=== PATIENT | male | born 1985 | race Caucasian/White ===

== ENCOUNTER 2022-06-28 17:24 | Emergency (ER) | payer OTHER, SELFPAY ==
[2022-06-28 17:25] VITALS: BP 127/76; PULSE 91; RESP 16; TEMP 36.2; O2SAT 100; BMI 25.8
--- NOTE | 2022-06-28 17:58 | RAD_ITS ---
STUDY: X-RAY - RIGHT FOOT CLINICAL: Male, 36 years old. injury TECHNIQUE: 3 view(s) of the foot. COMPARISON: None. FINDINGS: Acute comminuted fracture the body the calcaneus with loss of Boehler''s angle. Normal visualized subtalar, talonavicular, calcaneocuboid, tarsal and tarsometatarsal articulations. Normal metatarsi. Normal metatarsophalangeal joint of the great toe. Normal tibial and fibular sesamoid bones. Normal interphalangeal joint of the great toe. Normal phalanges of the great toe. Normal second through fifth metatarsophalangeal joints. Normal interphalangeal joints and phalanges of the lesser toes. The soft tissue structures are unremarkable. RAD/Foot min 3 Views IMPRESSION: Acute comminuted fracture the body the calcaneus with loss of Boehler''s angle. Electronically Signed: Alonso Haro MD at 19:46 EDT ,
--- NOTE | 2022-06-28 17:59 | EX.ED.GENINJ ---
HPI History of Present Illness Chief Complaint: Fall Informant: patient Onset/Context/Timing Onset: Today Mechanism/Context: Fall (12 foot fall off a roof) Location of pain/injuries: Right ankle and Right foot Current Severity: Moderate Maximum Severity: Moderate Narrative Narrative: Patient presents approximately hour and a half after falling 12 feet off a roof. He states he landed on both feet with his knees bent. He did fall forward with a mild impact to his head. There was no loss of consciousness. He has no headache or neck pain. He states he landed in mud. He is complaining of pain to the right ankle and foot. He denies hip or back pain at this time. PFSH PFSH Medical History no medical history no medical history Home Medications oxycodone-acetaminophen 5 mg-325 mg tablet (Percocet) 1 tab PO Q6H PRN pain 5 days #20 tabs 06/28/22 [Rx Last Taken Unknown] Allergy/AdvReac Type Severity Reaction Status Date / Time No Known Allergies Allergy Verified 06/28/22 17:25 Surgical History no surgical history Social History Smoking Status: Current every day smoker tobacco type: cigarettes ROS ROS ED Constitutional Constitutional ED: Denies chills or fever(s) Eyes Eyes: Denies change in vision or discharge from eye(s) ENT ENT ED: Denies discharge from eye(s), rhinorrhea or sore throat Cardiovascular Cardiovascular: Denies chest pain or palpitations Respiratory/Chest Respiratory/Chest: Denies cough or dyspnea Gastrointestinal Gastrointestinal: Denies abdominal pain, diarrhea, nausea or vomiting Genitourinary Genitourinary ED: Denies dysuria Musculoskeletal Musculoskeletal: Reports extremity pain; Denies back pain Integumentary Denies Abrasions or rash Neurologic Neurologic: Denies headache(s) or weakness Psychiatric Psychiatric: Denies anxiety or depression Allergic/Immunologic Allergic/Immunologic ED: Denies lip swelling or urticaria EXAM Physical Exam Const Vital Signs: 06/28/22 17:25 06/28/22 17:36 Temperature 97.2 F L Temperature Source Temporal Pulse Rate 91 Respiratory Rate 16 Respiratory Effort Normal Non-Labored Respiratory Depth Normal Respiratory Pattern Normal Blood Pressure 127/76 H Blood Pressure Mean 93 Pulse Ox 100 Oxygen Delivery Method Room Air Positive well nourished and well developed General Appearance ED: well developed HEENT Reports normocephalic and head/scalp atraumatic Eyes PERRL and EOMs intact bilaterally Neck supple Chest Wall inspection of chest normal and palpation of chest normal Resp normal respiratory effort and clear to auscultation bilaterally Cardio regular rate and regular rhythm GI normal to inspection, nondistended, normoactive bowel sounds Palpation: soft Back/Spine no CVA tenderness Extremity Extremity Narrative: Edema and tenderness noted to the right ankle and calcaneus. Patient able to wiggle toes. Has good sensation distally. No tenderness at the knee or hip. Neuro oriented x3 and no sensory deficits noted Sensorium / Orientation: alert Psych mental status grossly normal Skin no rashes or lesions noted PROC Procedures Lower Extremity Splints Lower Extremity Splint: Marisa and Rafael Salazar Splint Fabrication: Fabricated Location: Right MDM MDM MDM Narrative Medical decision making narrative: Patient given morphine and Zofran for pain. X-rays of the right ankle and foot obtained. Radiography Diagnostic Testing: Clinical Impression(s) from Imaging Studies Foot X-Ray 06/28/22 17:58 IMPRESSION: Acute comminuted fracture the body the calcaneus with loss of Boehler''s angle. Electronically Signed: Alonso Haro MD at 19:46 EDT Reading Location ID and State: [employer] / [employer] , Service support , Ankle X-Ray 06/28/22 18:10 IMPRESSION: Acute comminuted calcaneal fracture. Electronically Signed: Alonso Haro MD at 19:45 EDT Reading Location ID and State: [employer] / [employer] , Service support , Abdomen/Pelvis CT 06/28/22 18:21 IMPRESSION: 1. No acute solid organ or bowel injury. 2. 2 mm nonobstructing left renal stone. Electronically Signed: Alonso Haro MD at 20:02 EDT Reading Location ID and State: [employer] / [employer] , Service support , Lower Extremity CT 06/28/22 18:21 IMPRESSION: 1. Acute comminuted the fracture the body the calcaneus with a depressed fracture through the posterior subtalar joint and loss of Boehler''s angle. 2. Subtle nondisplaced fracture of the tibial plafond. Electronically Signed: Alonso Haro MD at 19:58 EDT , Treatment and Re-Evaluation Narrative: Right foot and ankle x-rays per my interpretation reveal a calcaneal fracture. Patient sent for CT scan of the right lower extremity as well as CT scan of the abdomen and pelvis to evaluate the lumbar spine and hips. Radiology interpretation is reviewed for all studies. There is an acute comminuted fracture of the body the calcaneus with a depressed fracture through the posterior subtalar joint and loss of Boehler's angle. There is a subtle nondisplaced fracture of the tibial plafond. Patient is discussed with foot and ankle, Dr. Weston. She reviewed the patient's imaging. Patient will be placed in a splint and will follow-up in the office in 1 week. Discharge Plan Triage Chief Complaint: Fall ED Provider: Kenia Golden Dx/Rx/DC Orders Clinical Impression: Calcaneus fracture, Fall Instructions: ED Fracture, Foot Prescriptions: New oxycodone-acetaminophen [Percocet] 5-325 mg tablet 1 tab PO Q6H PRN (Reason: pain) 5 Days Qty: 20 0RF Primary Care Provider: Ricardo Oconnor Referrals: Shyanne Weston DPM [Med Staff - Active Staff] - 1 Week Ricardo Oconnor DO [Primary Care Provider] - Disposition Disposition: Home, Self Care
[2022-06-28] MEDS: Ondansetron 4 MG/2 ML Vial IV ×2 (18:09→20:25)
[2022-06-28] MEDS: Morphine 4 MG/ML Syringe IV ×2 (18:10→20:25)
--- NOTE | 2022-06-28 18:10 | RAD_ITS ---
STUDY: X-RAY - RIGHT ANKLE REASON FOR EXAM: Male, 36 years old. injury TECHNIQUE: The view(s) of the ankle. COMPARISON: None. FINDINGS: Normal visualized distal tibia and fibula. Normal medial and lateral malleoli. Normal tibiotalar articulation and ankle mortise. Acute comminuted fracture of the calcaneus with loss of Boehler''s angle. The visualized subtalar, talonavicular, calcaneocuboid and tarsal articulations are normal. Lateral soft tissue swelling consistent ligaments injury. RAD/Ankle min 3 Views IMPRESSION: Acute comminuted calcaneal fracture. Electronically Signed: Alonso Haro MD at 19:45 EDT ,
--- NOTE | 2022-06-28 18:21 | CT_ITS ---
STUDY: CT RIGHT FOOT REASON FOR EXAM: Male, 36 years old. right calcaneal fx RADIATION DOSAGE (If Supplied By Facility): CTDIvol = ( 15.35 ) mGy, DLP = ( 331.96 ) mGycm TECHNIQUE: Thin section transaxial imaging of the foot was obtained, with sagittal and coronal reconstructed images. Individualized dose optimization techniques were used for this CT. COMPARISON: X-ray earlier today FINDINGS: Acute comminuted fracture the body the calcaneus with a depressed fracture the anterior subtalar joint and loss of Boehler''s angle. There is a thin coronally oriented radiolucency through the articular surface of the tibial plafond worrisome for subtle nondisplaced fracture.. Normal visualized tibiotalar, subtalar, talonavicular, calcaneocuboid, tarsal and tarsometatarsal articulations. Normal metatarsi. Normal metatarsophalangeal joint of the great toe. Normal tibial and fibular sesamoid bones. Normal interphalangeal joint of the great toe. Normal phalanges of the great toe. Normal second through fifth metatarsophalangeal joints. Normal interphalangeal joints and phalanges of the lesser toes. The soft tissue structures are unremarkable. CT/Extremity Lower without Contra IMPRESSION: 1. Acute comminuted the fracture the body the calcaneus with a depressed fracture through the posterior subtalar joint and loss of Boehler''s angle. 2. Subtle nondisplaced fracture of the tibial plafond. Electronically Signed: Alonso Haro MD at 19:58 EDT ,
--- NOTE | 2022-06-28 18:21 | CT_ITS ---
STUDY: CT ABDOMEN AND PELVIS WITHOUT CONTRAST REASON FOR EXAM: Male, 36 years old. trauma -- please scan through hips RADIATION DOSAGE (If Supplied By Facility): CTDIvol = ( 6.18 ) mGy, DLP = ( 313.50 ) mGycm TECHNIQUE: Transaxial images were obtained from the dome of the diaphragm to the symphysis pubis without oral contrast, and without intravenous contrast. Sagittal and coronal images were reconstructed. Individualized dose optimization techniques were used for this CT. COMPARISON: None. FINDINGS: The visualized lung bases are unremarkable. The visualized portions of the heart are within normal limits. Normal liver. Normal gallbladder and extrahepatic biliary system. Normal spleen. Normal pancreas. Normal bilateral adrenal glands. Normal right kidney. 2 mm nonobstructing stone in the midsection left kidney. No hydronephrosis, ureteral stone, or ureteral dilatation. Normal visualized stomach. Normal small intestine. Normal colon. The appendix is visualized and appears normal. Normal abdominal aorta. Normal inferior vena cava. Normal retroperitoneum. Normal urinary bladder. Normal abdominal wall. Normal osseous structures. CT/Abdomen/Pelvis without Cont IMPRESSION: 1. No acute solid organ or bowel injury. 2. 2 mm nonobstructing left renal stone. Electronically Signed: Alonso Haro MD at 20:02 EDT ,
[2022-06-28 20:57] VITALS: BP 124/73; PULSE 56; RESP 17; O2SAT 97
== END 2022-06-28 21:03 | disposition home or self-care (01) ==
PROVIDERS: Emergency Provider Emergency Medicine; PCP Family Medicine; Visit Provider Emergency Medicine
DX: S92.011A Displaced fracture of body of right calcaneus, initial encounter for closed fracture (principal); S82.874A Nondisplaced pilon fracture of right tibia, initial encounter for closed fracture; W13.2XXA Fall from, out of or through roof, initial encounter; F17.210 Nicotine dependence, cigarettes, uncomplicated
CPT/HCPCS: 29515; 73610; 73630; 73700; 74176; 96374; 96375; 96376; 99284; A4216; J2405

== ENCOUNTER 2025-06-19 17:03 | Emergency (ER) | payer OTHER, SELFPAY ==
[2025-06-19 17:03] VITALS: BP 128/83; PULSE 64; RESP 16; TEMP 36.4; O2SAT 99
--- NOTE | 2025-06-19 17:47 | EX.ED.GUMALE ---
HPI History of Present Illness Chief Complaint: Flank Pain Narrative Narrative: Chief complaint and HPI: Left flank pain. 39-year-old Faith male with no significant past medical history presents for evaluation of left flank pain. Patient states since approximately 2 PM he has been having intermittent left flank pain. States it currently has resolved. Develops nausea when pain is severe. Denies any history of kidney stones. Denies any fever, chills, shortness of breath, chest pain, diarrhea, emesis, constipation, dysuria, urinary frequency, penile or testicular pain. Review of systems: See HPI Medications: As listed on the chart Allergies: As listed on the chart PFSH: Per chart Vital signs: As listed on the chart. Reviewed. Physical exam: Gen: A&O x3, NAD Head: Normocephalic, atraumatic Eyes: No sclera icterus, conjunctiva clear ENT: Moist mucous membranes Neck: Trachea midline, No JVD CV: RRR, no murmurs, no peripheral edema Resp: Lungs CTA BL, no w/r/c GI: Abd soft, non-distended, non-tender, no r/r/g : No CVA tenderness. Circumcised penis. No penile tenderness or discharge. No penile or testicular swelling. Normal lie and position of the testicles. No testicular tenderness, masses, or skin changes. Cremasteric reflexes intact and equal bilaterally. No rashes. No palpable hernias. Musc: Full ROM, no deformity Skin: Warm, dry Neuro: Alert, oriented, grossly intact, sensation intact Psych: Cooperative, appropriate mood and affect PFSH PFSH Medical History no medical history Home Medications ?Medication ?Instructions ?Recorded ?Last Taken ?Type NK 06/19/25 Unknown History Allergy/AdvReac Type Severity Reaction Status Date / Time No Known Allergies Allergy Verified 06/19/25 17:05 Social History Smoking Status: Current every day smoker tobacco type: cigarettes EXAM Physical Exam Const Vital Signs: 06/19/25 17:03 06/19/25 19:05 06/19/25 20:00 Temperature 97.5 F L 98.1 F 98.1 F Temperature Source Oral Oral Oral Pulse Rate 64 57 L 58 L Respiratory Rate 16 18 16 Blood Pressure 128/83 H 112/66 115/64 Blood Pressure Mean 98 81 81 Pulse Ox 99 100 98 Oxygen Delivery Method Room Air Room Air Room Air MDM MDM MDM Narrative Medical decision making narrative: 39-year-old Faith male with no significant past medical history presents for evaluation of left flank pain. Patient states since approximately 2 PM he has been having intermittent left flank pain. States it currently has resolved. Associated symptom is periodic nausea. Differential diagnosis includes but is not limited to urolithiasis, UTI, myofascial spasm. NS bolus, Zofran, Toradol ordered as one patient and I discussed preventing future episodes of pain. Basic labs ordered with urine and CT abdomen pelvis. CBC without leukocytosis of 12.8. No anemia. BMP unremarkable without SILVESTRE. UA negative for UTI but positive for blood. CT abdomen pelvis shows a small 1 to 2 mm stone at the posterior left aspect of the urinary bladder, at or just past the left UVJ. Very mild left hydroureteronephrosis and perinephritic edema related to recent stone passage. He has one additional tiny nonobstructive left renal stone. Patient's symptoms were likely secondary to past urolithiasis. Patient was updated of all the results and confirmed understanding. I will place him on Flomax to help with the rest of the passage of the stone. Follow-up with urology. Small amount of narcotics and Zofran as needed. He confirmed understanding of the plan. Patient stable to discharge home. Return precautions explained. Impression: 1. Left flank pain 2. Passed urolithiasis Lab Data Labs: Laboratory Results - last 24 hr 06/19/25 06/19/25 17:19 19:14 WBC 12.8 H RBC 5.44 Hgb 16.3 Hct 45.5 MCV 83.6 MCH 30.0 MCHC 35.8 RDW Std Deviation 37.1 RDW Coeff of [place] 12.3 Plt Count 215 MPV 10.7 Immature Gran % (Auto) 0.400 Neut % (Auto) 77.9 H Lymph % (Auto) 13.7 L [place] % (Auto) 5.6 Eos % (Auto) 1.9 Baso % (Auto) 0.5 Absolute Neuts (auto) 10.0 H Absolute Lymphs (auto) 1.76 Nucleated RBC % 0 Sodium 137 Potassium 4.0 Chloride 102 Carbon Dioxide 23.0 Anion Gap 12 BUN 21 H Creatinine 1.07 Est GFR (MDRD) Non-Af 91 BUN/Creatinine Ratio 19.3 Glucose 119 H Calcium 10.7 Urine Color Straw Urine Clarity Clear Urine pH 6.0 Ur Specific [place] 1.020 Urine Protein 15 H Urine Glucose (UA) Normal Urine Ketones Negative Urine Occult Blood 10 H Urine Nitrite Negative Urine Bilirubin Negative Urine Urobilinogen Normal Ur Leukocyte Esterase Negative Urine RBC 0-5 SEEN Urine WBC 0-5 SEEN Ur Squamous Epith Cells 0-5 SEEN Urine Bacteria 0 SEEN Urine Mucus 0 SEEN Radiography Diagnostic Testing: Clinical Impression(s) from Imaging Studies Abdomen/Pelvis CT 06/19/25 18:10 IMPRESSION: Small 1-2 mm stone at the posterior left aspect of the urinary bladder, at or just past the left ureterovesicular junction. Very mild left hydroureteronephrosis and perinephric edema related to recent stone passage. One additional tiny nonobstructive left renal stone. Reading Location: [facility] Discharge Plan Triage Chief Complaint: Flank Pain ED Provider: Esvin Cosme Dx/Rx/DC Orders Prescriptions: No Action NK Primary Care Provider: Ricardo Oconnor Referrals: Ricardo Oconnor, [Primary Care Provider] - Print Language: [place]
[2025-06-19] MEDS: 0.9% Normal Saline (1000mL) 1,000 ML 999 ML IV (18:01)
[2025-06-19 18:03] LABS: Hematocrit 45.5 % (40-54); Hemoglobin 16.3 g/dL (13.0-16.5); Immature Granulocytes Count 0.050 X10^3/uL (0.0-0.0); Mean Corp Hgb Conc 35.8 g/dL (32-36); Mean Corpuscular Volume 83.6 fL (80-94); Mean Platelet Vol. 10.7 fl (6.2-12.0); NRBC Flagged by Analyzer 0 % (0-5); Platelet Count 215 K/mm3 (150-450); RBC Distribution Width CV 12.3 % (11.6-14.6); RBC Distribution Width SD 37.1 fl (35.1-43.9); Red Blood Count 5.44 M/mm3 (4.6-6.2); White Blood Count 12.8 K/mm3 (4.4-11.0)
--- NOTE | 2025-06-19 18:10 | CT_ITS ---
PROCEDURE: CT ABDOMEN/PELVIS WITHOUT CONTRAST 06/19/2025 REASON FOR EXAM: PAIN TECHNIQUE: CT ABDOMEN/PELVIS WITHOUT CONT Noncontrast technique limits evaluation of the abdominal and pelvic viscera. Coronal and Sagittal reconstruction series were provided. One or more dose reduction techniques were used (e.g., Automated exposure control, adjustment of the mA and/or kV according to patient size, use of iterative reconstruction technique). RADIATION DOSE SUMMARY: CTDlvol: 6.81 mGy DLP: 376.03 mGycm COMPARISON: Abdominal CT 06/28/2022. FINDINGS: Lung bases: Bibasilar dependent atelectasis. Liver: Unremarkable. Gallbladder: Unremarkable. No biliary ductal dilatation. Spleen: Unremarkable. Pancreas: Unremarkable. Adrenals: Unremarkable. Kidneys/Bladder: Small 1-2 mm stone at the posterior left aspect of the bladder, at or just past the left ureterovesicular junction. There is mild left hydroureteronephrosis and left perinephric edema. One additional tiny nonobstructive left lower pole renal stone. No stones or hydronephrosis on the right. Reproductive Organs: Unremarkable. Nonenlarged prostate. Bowel: Unremarkable. No obstruction or active inflammatory process. Normal appendix. Lymph nodes: No enlarged abdominopelvic lymph nodes. Vasculature: Normal caliber abdominal aorta and IVC. Peritoneum / Retroperitoneum: No ascites or free air. Bones: No significant abnormality. CT/Abdomen/Pelvis without Cont IMPRESSION: Small 1-2 mm stone at the posterior left aspect of the urinary bladder, at or j ust past the left ureterovesicular junction. Very mild left hydroureteronephrosis and perinephric edema related to recent stone p assage. One additional tiny nonobstructive left renal stone. Reading Location: [id number]
[2025-06-19 18:28] LABS: Anion Gap 12 (5-15); BUN 21 mg/dL (4-19); BUN/Creat Ratio 19.3 RATIO (10-20); Calcium,Total 10.7 mg/dL (7.6-11.0); Carbon Dioxide 23.0 mmol/L (21.0-32.0); Chloride 102 mmol/L (98-108); Glucose 119 mg/dL (70-99); Potassium 4.0 mmol/L (3.3-5.1)
[2025-06-19 19:05] VITALS: BP 112/66; PULSE 57; RESP 18; TEMP 36.7; O2SAT 100
[2025-06-19 19:19] LABS: Mucous, Urine 0 SEEN /hpf (<or=2+)
[2025-06-19 19:26] LABS: Color, Urine Straw (Yellow); Glucose, Dipstick Normal (Normal); Ketone-Dipstick Negative (Negative); Leukocyte Esterase-Dipstick Negative /ul (Negative); Nitrite-Dipstick Negative (Negative); Occult Blood-Urine 10 /ul (Negative); Protein-Dipstick 15 mg/dl (Negative); Specific Gravity, Urine 1.020 (1.002-1.030); Urine Bilirubin Dipstick Negative (Negative)
[2025-06-19 19:37] LABS: Red Blood Cells-Urine 0-5 SEEN /hpf (0-5); Squamous Epithelial Cells - UA 0-5 SEEN /hpf (0-5)
[2025-06-19 20:00] VITALS: BP 115/64; PULSE 58; RESP 16; TEMP 36.7; O2SAT 98
[2025-06-19 20:17] VITALS: BP 120/74; PULSE 58; RESP 16; TEMP 36.7; O2SAT 98
== END 2025-06-19 20:29 | disposition home or self-care (01) ==
PROVIDERS: Emergency Provider Surgery; PCP Family Medicine; Visit Provider Surgery
DX: R10.9 Unspecified abdominal pain (principal); R11.0 Nausea; F17.210 Nicotine dependence, cigarettes, uncomplicated; N20.9 Urinary calculus, unspecified
CPT/HCPCS: 74176; 80048; 81001; 85025; 96361; 96374; 96375; 99283; A4216; J2405